=== PATIENT | female | born 2000 | race Caucasian/White ===

== ENCOUNTER 2021-10-14 16:19 | Emergency (ER) | payer BC ==
[2021-10-14] MEDS ORDERED: ARIPIPRAZOLE2 MG PO (16:36)
[2021-10-14] MEDS ORDERED: ESCITALOPRAM OX10 MG PO (16:42)
== END 2021-10-14 17:52 | disposition home or self-care (01) ==
LOC: ED 16:19
DX: S01.01XA Laceration without foreign body of scalp, initial encounter (principal); Z79.899 Other long term (current) drug therapy; W22.8XXA Striking against or struck by other objects, initial encounter; Y93.89 Activity, other specified; Y92.89 Other specified places as the place of occurrence of the external cause; Y99.8 Other external cause status

== ENCOUNTER 2024-04-05 01:37 | Emergency (ER) | payer BC ==
[~2024-04-05] VITALS: Ht 167.6 cm; Wt 61.2 kg
[~2024-04-05 01:37] MED LIST: ARIPIPRAZOLE2 MG PO; ESCITALOPRAM OX10 MG PO
[2024-04-05] MEDS ORDERED: Ondansetron Hydrochloride 4 MG/2 ML VIAL IV ONE (02:05)
[2024-04-05] MEDS ORDERED: SODIUM CHLORIDE 0.9% 1,000 ML IV ONE (02:05)
[2024-04-05 02:16] LABS: BASO % 0.4 % (0.0-1.0); EOS % 0.1 % (1.0-4.0); HEMATOCRIT 38.7 % (37.0-47.0); MEAN CELL VOLUME 92.4 fl (81.0-99.0); MEAN CORPUSCULAR HGB 31.7 pg (27.0-31.0); MEAN CORPUSCULAR HGB CONC 34.4 g/dl (33.0-37.0); MEAN PLATELET VOLUME 10.1 fl (9.6-12.3); MONO # 0.6 10*3/uL (0.1-1.0); MONO % 6.4 % (3.0-9.0); NEUT # 6.9 10*3/uL (2.3-7.9); NEUT % 72.8 % (47.0-73.0); PLATELET COUNT AUTOMATED 299 10*3/uL (130-400); RED BLOOD COUNT 4.19 10*6/uL (4.10-5.10); RED CELL DISTRI WIDTH 12.6 % (0-14.5); WHITE BLOOD COUNT 9.5 10*3/uL (4.8-10.8)
[2024-04-05 02:41] LABS: BUN 11 mg/dl (9-23); CHLORIDE 102 mmol/L (98-107); POTASSIUM 3.2 mmol/L (3.4-5.1)
[2024-04-05] MEDS ORDERED: DIAZEPAM 10 MG/2 ML SYR IV ONE (04:30)
== END 2024-04-05 04:30 | disposition home or self-care (01) ==
LOC: ED 01:37
PROVIDERS: Internal Medicine
DX: R11.2 Nausea with vomiting, unspecified (principal); E87.6 Hypokalemia; R19.7 Diarrhea, unspecified; R10.10 Upper abdominal pain, unspecified; Z91.018 Allergy to other foods; Z91.010 Allergy to peanuts